=== PATIENT | female | born 2000 | race Two or more races ===

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

== ENCOUNTER 2020-05-02 23:52 | Inpatient (IN) | payer SELFPAY ==
[2020-05-03] MEDS ORDERED: RINGERS SOLUTION,LACTATED 1,000 ML IV ONE (01:00)
[2020-05-03] MEDS ORDERED: RINGERS SOLUTION,LACTATED 1,000 ML IV PRN ×2 (01:00→22:46)
[2020-05-03] MEDS ORDERED: PENICILLIN G POTASSIUM 5,000,000 UNIT in DEXTROSE 5%-WATER 100 ML IV ONE (01:09)
[2020-05-03] MEDS ORDERED: OXYTOCIN 10 UNIT/ML VIAL ONE ×3 (01:15→23:15)
[2020-05-03] MEDS ORDERED: LIDOCAINE 1% INJ-PF (10 MG/ML) 30 ML SDV ONE (01:15)
[2020-05-03] MEDS ORDERED: MISOPROSTOL 0.2 MG TABLET ONE (01:15)
[2020-05-03] MEDS ORDERED: PENICILLIN G-K 5 MILLION UNIT VIAL ONE ×2 (01:16→05:30)
[2020-05-03] MEDS ORDERED: OXYTOCIN/0.9 % SODIUM CHLORIDE 30 UNIT/500 ML RTUINJ ONE (01:16)
[2020-05-03 01:32] LABS: HEMATOCRIT 35.4 % (36.0-47.0); MEAN CORPUSCULAR HEMOGLOBIN 29.9 pg (27.0-33.4); MEAN CORPUSCULAR HGB CONC 33.9 g/dL (32.0-36.0); MEAN CORPUSCULAR VOLUME 88 fl (80-97); PLATELET COUNT 193 10^3/uL (150-450); RED BLOOD COUNT 4.01 10^6/uL (3.72-5.28); RED CELL DISTRIBUTION WIDTH 15.4 % (11.5-14.0); WHITE BLOOD COUNT 9.3 10^3/uL (4.0-10.5)
[2020-05-03 01:42] LABS: APPEARANCE,URINE SLIGHTLY-CLOUDY; BILIRUBIN,URINE NEGATIVE (NEGATIVE); COLOR,URINE YELLOW; GLUCOSE, URINE NEGATIVE (NEGATIVE); KETONES,URINE NEGATIVE (NEGATIVE); LEUKOCYTE ESTERASE,URINE NEGATIVE (NEGATIVE); NITRITE,URINE NEGATIVE (NEGATIVE); PROTEIN,URINE 100 mg/dL (NEGATIVE); URINE SPECIFIC GRAVITY 1.019; UROBILINOGEN,URINE NEGATIVE mg/dL (<2.0)
[2020-05-03 01:50] LABS: ALBUMIN 3.5 g/dL (3.5-5.0); ALKALINE PHOSPHATASE 251 U/L (38-126); ANION GAP 6 (5-19); ASPARTATE AMINO TRANSFERASE 22 U/L (14-36); BILIRUBIN,TOTAL 0.2 mg/dL (0.2-1.3); BLOOD UREA NITROGEN 15 mg/dL (7-20); CALCIUM 9.3 mg/dL (8.4-10.2); CARBON DIOXIDE 20 mmol/L (22-30); CHLORIDE 109 mmol/L (98-107); GLUCOSE 93 mg/dL (75-110); POTASSIUM 4.3 mmol/L (3.6-5.0); TOTAL PROTEIN 6.9 g/dL (6.3-8.2); URIC ACID 4.4 mg/dL (2.5-6.2)
[2020-05-03 01:59] LABS: URINE AMPHETAMINES SCREEN NEGATIVE; URINE BARBITURATES SCREEN NEGATIVE; URINE BENZODIAZEPINES SCREEN NEGATIVE; URINE COCAINE SCREEN NEGATIVE; URINE MARIJUANA (THC) SCREEN NEGATIVE; URINE METHADONE SCREEN NEGATIVE; URINE PHENCYCLIDINE SCREEN NEGATIVE
[2020-05-03] MEDS ORDERED: EPHEDRINE SULFATE INJ 50 MG/1 ML AMPULE ONE (02:30)
[2020-05-03] MEDS ORDERED: FENTANYL/BUPIVACAINE/NS/PF 300 MCG/150 ML RTUINJ EPI ONE ×2 (02:30→19:16)
[2020-05-03] MEDS ORDERED: ROPIVACAINE HCL 0.2% INJ/PF (2 MG/ML) 20 ML SDV ONE (02:30)
[2020-05-03] MEDS ORDERED: PENICILLIN G POTASSIUM 2,500,000 UNIT in DEXTROSE 5%-WATER 50 ML IV SCH (05:09)
[2020-05-03 05:27] LABS: CHLAM PCR NOT DETECTED (NOT DETECT)
--- NOTE | 2020-05-03 07:12 | Admission Physical ---
Datetime Report Generated by CPN: 05/03/2020 07:11 CURRENT ADMISSION Hx Assessment: The History has been Reviewed and is Current Chief Complaint: Uterine Contractions Chief Complaint Other: G1 at 40.4 wks EGA in active labor . Contractions every 3 minutes. Admit Impression : Active Labor Admit Plan: Admit to Unit; Initiate Labor Protocol ALLERGIES Medication Allergies: No Medication Allergies: No Known Allergies (05/03/2020), pork Latex: No Latex Allergies Food Allergies: pork OBSTETRICAL HISTORY EDC: 04/29/2020 00:00 : 1 Para: 0 Term: 0 : 0 SAB: 0 IAB: 0 Ectopic: 0 Livin Cesareans: 0 VBACs: 0 Multiple Births: 0 Gestational Diabetes: No Rh Sensitization: No Incompetent Cervix: No CHAS: No Infertility: No ART Treatment: No Uterine Anomaly: No IUGR: No Hx Previous C/S: No Macrosomia: No Hx Loss/Stillborn: No PIH: No Hx : No Placenta Previa/Abruption: No Depression/PP Depression: No PTL/PROM: No Post Hemorrhage: No Current Procedures: Ultrasound Obstetrical History Comments: g1-current SEE RECORDS Alcohol: No Marijuana : No Cocaine: No Other Illicit Drugs: No Cigarettes: Never Smoker. 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 Heart Disease: No Hosp/Surgery: No Autoimmune Disorder: No Anesthetic Complications: No Kidney Disease: No Abnormal Pap Smear: No Neuro/Epilepsy: No Psychiatric Disorders: No Other Medical Diseases: No Hepatitis/Liver Disease: No Significant Family History: No Varicosities/Phlebitis: No Trauma/Violence : No Thyroid Dysfunction: No INFECTIOUS HISTORY Gonorrhea: No Genital Herpes: No Chlamydia: No Tuberculosis: No Syphilis: No Hepatitis: No HIV/AIDS Exposure: No Rash or Viral Illness: No HPV: No PHYSICAL EXAM General: Normal HEENT: Normal Neurologic: Normal Thyroid: Normal Heart: Normal Lungs: Normal Breast: Normal Back: Normal Abdomen: Normal Genitourinary Exam: Normal Extremities: Normal DTRs: Normal Pelvic Type: Adequate Vital Signs: Reviewed; Within Normal Limits FETUS A EGA: 40.4 Monitoring: External US FHR- Baseline: 130 Variability: Moderate 6-25bpm Accelerations: 15X15 Decelerations: Late FHR Category: Category II Presentation: Vertex Admit Comment: G1 at 40.4 wks EGA in active labor at term -Admit to LDR -NPO and IVFs: LR at 125 cc/hr after 1 liter bolus -GBS unknown: will start PCN and get records from health department as soon as open -O+ blood type, antibody negative/ G/C negative -CEFM and toco. Mod jared, occassional shallow late: Cat 2 -Mildly elevated b/p, no PIH symptoms. PIH labs pending -PLan for PLANS FOR LABOR AND DELIVERY Labor and Delivery: None Pain Management: Medications Feeding Preference: Both Benefit of Breast Feed Discussed: Yes Circumcision: Yes INFORMED CONSENT Informed Consent Obtained: Vaginal Delivery; Section Delivery; Vacuum/Forceps Assist; Risks, Benefits and Alternatives Discussed Signature: with User ID: Ernesto : with User ID: [email or web address]
[2020-05-03] MEDS ORDERED: OXYTOCIN/0.9 % SODIUM CHLORIDE 30 UNIT/500 ML RTUINJ IV PRN ×2 (10:55→22:46)
[2020-05-03] MEDS ORDERED: ROPIVACAINE HCL 0.5% INJ/PF (5 MG/1 ML) 30 ML SDV ONE ×2 (11:40→16:42)
[2020-05-03] MEDS ORDERED: ONDANSETRON HCL INJ/PF 4 MG/2 ML SDV ONE (17:00)
[2020-05-03] MEDS ORDERED: ONDANSETRON HCL INJ/PF 4 MG/2 ML SDV IV ONE (17:02)
[2020-05-03] MEDS ORDERED: CEFAZOLIN 2 GM/D5W RTU 2 GM/50 ML RTUPB IV ONE (21:37)
[2020-05-03] MEDS ORDERED: CITRIC ACID/SODIUM CITRATE ORAL SOLN 15 ML UDCUP ONE (21:37)
[2020-05-03] MEDS ORDERED: MAGNESIUM SULFATE 0 GM/0 ML RTUINJ IV ONE (22:05)
[2020-05-03] MEDS ORDERED: MAGNESIUM SULFATE 4 GM/100 ML RTUPB IV ONE (22:05)
[2020-05-03] MEDS ORDERED: MIDAZOLAM 2 MG/2 ML INJ ONE (22:22)
[2020-05-03] MEDS ORDERED: FENTANYL CITRATE INJ/PF 100 MCG/2 ML AMPUL ONE (22:23)
[2020-05-03] MEDS ORDERED: ACETAMINOPHEN 325 MG TABLET PO PRN (22:46)
[2020-05-03] MEDS ORDERED: GLUCAGON,HUMAN RECOMB 1 MG INJ SUBCUT PRN (22:46)
[2020-05-03] MEDS ORDERED: DEXTROSE 40% GEL 15 GM TUBE PO PRN ×2 (22:46)
[2020-05-03] MEDS ORDERED: MORPHINE SULFATE 10 MG/ML INJ IM PRN (22:46)
[2020-05-03] MEDS ORDERED: PROMETHAZINE HCL INJ 25 MG/1 ML VIAL IV PRN (22:46)
[2020-05-03] MEDS ORDERED: SIMETHICONE 80 MG TAB.CHEW PO PRN (22:46)
[2020-05-03] MEDS ORDERED: DEXTROSE 50%-WATER 25 GM/50 ML DISP.SYRIN IV PRN ×2 (22:46)
[2020-05-03] MEDS ORDERED: ACETAMINOPHEN 1,000 MG/100 ML RTUPB IV PRN (22:46)
[2020-05-03] MEDS ORDERED: DIPH/PERTUSS(ACELL)/TETANUS VAC/PF 0.5 ML SYR (>=10YO) IM PRN (22:46)
[2020-05-03] MEDS ORDERED: MEASLES,MUMPS&RUBELLA VACC/PF 0.5 ML VIAL SUBCUT PRN (22:46)
--- NOTE | 2020-05-03 22:50 | Operative Report ---
Operative Report DATE OF SURGERY: 05/03/20 PREOPERATIVE DIAGNOSIS: IUP at term spontaneous rupture membranes failu re to descend and eclampsia POSTOPERATIVE DIAGNOSIS: Same OPERATION: Primary low transverse liberal viable male SURGEON: RAFA FREEMAN ANESTHESIA: GA ESTIMATED BLOOD LOSS: Approximately 1200 cc PROCEDURE: The patient was taken to the operating room where spinal anesthesia was obtained and found to be adequate. She was then prepped and draped in the normal sterile fashion and placed in the dorsal supine position with a leftward tilt. A Pfannenstiel skin incision was then made and carried through to the underlying layers of the fascia with the scalpel. The fascia was incised in the midline and the incision extended laterally with the Liang scissors. The superior aspect of the fascial incision was then grasped with [place] clamps elevated and the underlying rectus muscles dissected off bluntly. Attention was then turned to the inferior aspect of the fascial incision which in a similar fashion was grasped, tented up with Tarik clamps, and the rectus muscles dissected off bluntly. The rectus muscles were then in the midline and the peritoneum at the amount identified and entered bluntly. The peritoneal incision was then extended superiorly and inferiorly with good visualization of the bladder. [The bladder blade was inserted and the vesicouterine peritoneum identified grasped with Turkmen pickups and entered sharply with the Metzenbaum scissors. His incision was then extended laterally with the Metzenbaum scissors and a bladder flap created digitally. The bladder blade was then reinserted and the lower uterine segment incised in a transverse fashion with the scalpel. The uterine incision was then extended bluntly. The bladder blade was removed and the 's head was delivered from cephalic presentation atraumatically. The nose and mouth were suctioned and the cord doubly clamped and cut. And the infant was handed off to waiting pediatricians. The placenta was then delivered manully and the uterus exteriorized and cleared of all clots and debris. The uterine incision was then repaired with 1-0 Vicryl in a running locked fashion. A second layer of the same suture was used to obtain hemostasis via imbrication of the initial layer. The uterus was returned to the patient's abdomen. The gutters were cleared of all clots and debris. All operative sites were noted to be hemostatic. The fascia was reapproximated with 0 Vicryl in a running fashion from each lateral edge to the midline. The patient tolerated the procedure well. Sponge lap needle and instrument counts are correct -2. 2 g of Ancef were given prior to skin incision. The patient was taken to the recovery area awake and in stable condition.
[2020-05-03] MEDS ORDERED: MAGNESIUM SULFATE 20 GM/500 ML RTUINJ IV ONE (22:54)
--- NOTE | 2020-05-03 22:56 | PDOC PROGRESS REPORT ---
Subjective Date:: 05/03/20 Subjective:: postictal Reason For Visit: Physical Exam - Physical Exam Vital Signs: Intake & Output 05/02/20 05/03/20 05/04/20 06:59 06:59 06:59 Weight 76 kg Result Laboratory Results: 05/03/20 01:18 05/03/20 01:18 05/03/20 05/03/20 05/03/20 01:18 01:18 01:18 WBC 9.3 RBC 4.01 Hgb 12.0 Hct 35.4 L MCV 88 MCH 29.9 MCHC 33.9 RDW 15.4 H Plt Count 193 Sodium 135.0 L Potassium 4.3 Chloride 109 H Carbon Dioxide 20 L Anion Gap 6 BUN 15 Creatinine 0.66 Est GFR ( Amer) > 60 Glucose 93 Uric Acid 4.4 Calcium 9.3 Total Bilirubin 0.2 AST 22 Alkaline Phosphatase 251 H Total Protein 6.9 Albumin 3.5 Urine Color Urine Appearance Urine pH Ur Specific [place] Urine Protein Urine Glucose (UA) Urine Ketones Urine Blood Urine Nitrite Ur Leukocyte Esterase Blood Type O POSITIVE Antibody Screen NEGATIVE 05/03/20 01:24 WBC RBC Hgb Hct MCV MCH MCHC RDW Plt Count Sodium Potassium Chloride Carbon Dioxide Anion Gap BUN Creatinine Est GFR ( Amer) Glucose Uric Acid Calcium Total Bilirubin AST Alkaline Phosphatase Total Protein Albumin Urine Color YELLOW Urine Appearance SLIGHTLY-CLOUDY Urine pH 7.0 Ur Specific [place] 1.019 Urine Protein 100 H Urine Glucose (UA) NEGATIVE Urine Ketones NEGATIVE Urine Blood NEGATIVE Urine Nitrite NEGATIVE Ur Leukocyte Esterase NEGATIVE Blood Type Antibody Screen Assessment & Plan - Time Time Spent with patient: Less than 15 minutes Medications reviewed and adjusted accordingly: Yes - Plan Summary Plan Summary: Called to see pt for evaluation of failure to decend. Arrived after py had a seizure. No prior indication of pre-eclampsia noted. Labs and BP in normal range. planned to proceed with .
[2020-05-03] MEDS ORDERED: PROPOFOL INJ 200 MG/20 ML VIAL IV ONE (23:07)
[2020-05-03 23:28] LABS: HEMATOCRIT 35.7 % (36.0-47.0); HEMOGLOBIN 11.8 g/dL (12.0-15.5); MEAN CORPUSCULAR HEMOGLOBIN 29.6 pg (27.0-33.4); MEAN CORPUSCULAR VOLUME 90 fl (80-97); PLATELET COUNT 221 10^3/uL (150-450); RED BLOOD COUNT 3.97 10^6/uL (3.72-5.28); RED CELL DISTRIBUTION WIDTH 15.3 % (11.5-14.0)
[2020-05-03 23:30] LABS: WHITE BLOOD COUNT 21.4 10^3/uL (4.0-10.5)
[2020-05-03 23:33] LABS: ALBUMIN 3.1 g/dL (3.5-5.0); ALKALINE PHOSPHATASE 251 U/L (38-126); ANION GAP 12 (5-19); ASPARTATE AMINO TRANSFERASE 38 U/L (14-36); BILIRUBIN,DIRECT 0.2 mg/dL (0.0-0.4); BILIRUBIN,TOTAL 0.5 mg/dL (0.2-1.3); BLOOD UREA NITROGEN 17 mg/dL (7-20); CALCIUM 8.3 mg/dL (8.4-10.2); CARBON DIOXIDE 14 mmol/L (22-30); CHLORIDE 104 mmol/L (98-107); GLUCOSE 94 mg/dL (75-110); POTASSIUM 5.2 mmol/L (3.6-5.0); TOTAL PROTEIN 6.4 g/dL (6.3-8.2); URIC ACID 5.3 mg/dL (2.5-6.2)
[2020-05-03 23:38] LABS: ABSOLUTE LYMPHOCYTES# (MANUAL) 1.5 10^3/uL (0.5-4.7); BASOPHILS % (MANUAL) 0 % (0-2); EOSINOPHILS % (MANUAL) 0 % (0-6); LYMPHOCYTES % (MANUAL) 7 % (13-45); MONOCYTES % (MANUAL) 0 % (3-13); SEGMENTED NEUTROPHILS % (MAN) 93 % (42-78); TOTAL CELLS COUNTED 100
[2020-05-03 23:39] LABS: ANISOCYTOSIS SLIGHT; PLATELET COMMENT ADEQUATE; TOXIC GRANULATION SLIGHT; TOXIC VACUOLATION PRESENT
[2020-05-04] MEDS ORDERED: ACETAMINOPHEN 1,000 MG/100 ML RTUPB IV ONE (00:05)
--- NOTE | 2020-05-04 02:36 | Delivery Summary ---
Del Sum A-C Datetime Report Generated by CPN: 05/04/2020 02:35 DELIVERY PERSONNEL DELIVERY PERSONNEL: [id number] Delivery Doctor:: Vamsi Chaudhry MD LINER ASSEMBLER:: Ashu Ospina, LINER ASSEMBLER Community Engagement Leader:: Kirk Gregory, RN Steward/Stewardess Chief Cargo Vessel/DRAWER WAXER: Jessi Green, ST Steward/Stewardess Chief Cargo Vessel/DRAWER WAXER: Paz Clark, ST MATERNAL INFORMATION Delivery Anesthesia: Epidural; General Medications After Delivery: Pitocin 30 Units in 500ml NS/D5W Delivery QBL: 710 Maternal Complications: Premature Rupture of Membranes LABOR SUMMARY EDC: 04/29/2020 00:00 No. Babies in Womb: 1 Attempted: No Labor Anesthesia: Epidural LABOR INFORMATION Reason for Induction: Not Applicable Onset of Labor: 05/03/2020 13:55 Complete Dilatation: 05/03/2020 18:27 Oxytocin: Augmentation Group B Beta Strep: negative Antibiotics # of Doses: n/a Steroids Given: None Reason Steroids Not Administered: Not Applicable MEMBRANES Membranes Rupture Method: Artificial Rupture of Membranes: 05/02/2020 23:00 Length of Rupture (hr): 23.28 Amniotic Fluid Color: Clear Amniotic Fluid Amount: Small Amniotic Fluid Odor: Normal STAGES OF LABOR Stage 1 hr: 4 Stage 1 min: 32 Stage 2 hr: 3 Stage 2 min: 50 Stage 3 hr: 24 Stage 3 min: 2 Total Time in Labor hr: 32 Total Time in Labor min: 24 VAGINAL DELIVERY Episiotomy: None Laceration #1: None Laceration Repair: Not Applicable Sponge Count Correct: N/A Sharps Count Correct: N/A CSECTION DELIVERY Primary Indication: Arrest of Descent CSection Urgency: Emergency CSection Incidence: Primary Labor: Labor Elective: N/A CSection Incision: Lower Uterine Transverse BABY A INFORMATION Infant Delivery Date/Time: 05/03/2020 22:17 Method of Delivery: Nurse Controlled Delivery: No Born in Route : No : N/A Forceps: N/A (Annotations: Data stored by [facility] on behalf of user) Vacuum Extraction: N/A Shoulder Dystocia : No PRESENTATION/POSITION BABY A Presentation: Cephalic Cephalic Presentation: Vertex (Annotations: Data stored by [facility] on behalf of user) Breech Presentation: N/A PLACENTA INFORMATION BABY A Placenta Delivery Time : 05/04/2020 22:19 Placenta Method of Delivery: Manual Removal Placenta Status: Delivered SCORES BABY A Heart Rate 1 min: >100 bpm Resp Effort 1 min: Good Cry Reflex Irritability 1 min: Cough or Sneeze or Pulls Away Muscle Tone 1 min: Active Motion Color 1 min: Blue/Pale Resuscitation Effort 1 min: Tactile Stimulation; Oxygen; PPV/NCPAP SCORE 1 MIN: 8 Heart Rate 5 min: >100 bpm Resp Effort 5 min: Good Cry Reflex Irritability 5 min: Cough or Sneeze or Pulls Away Muscle Tone 5 min: Active Motion Color 5 min: Body [place], Extremities Blue SCORE 5 MIN: 9 INFANT INFORMATION BABY A Gestational Age at Delivery: 40.4 Gestational Status: Full Term- 39- 40.6 Weeks Infant Outcome : Liveborn (Annotations: Data stored by CPN on behalf of user) Infant Condition : Stable (Annotations: Data stored by CPN on behalf of user) Infant Sex: Male (Annotations: Data stored by [facility] on behalf of user) IDENTIFICATION BABY A Infant Verification Date/Time: 05/03/2020 22:55 ID Band Number: [id number] Mother's Name Verified: Yes RN Verifying Infant: L Chaudhry, RN WEIGHT/LENGTH BABY A Infant Birthweight (gm): 3425 Weight (lb): 7 Weight (oz): 9 Length (in): 20.50 (Annotations: Data stored by [facility] on behalf of user) Infant Length (cm): 52.07 CORD INFORMATION BABY A No. Cord Vessels: 3 Nuchal Cord : N/A Cord Blood Taken: Yes-For Eval (Mom's Blood Type - or O+) Infant Suction: None ASSESSMENT BABY A Skin to Skin: Yes Skin to Skin Time (min): 10 BABY B INFORMATION : N/A SIGNATURES Signature: with User ID: [email or web address]
--- NOTE | 2020-05-04 02:36 | Birth Certificate Data ---
Cert Data Datetime Report Generated by CPN: 05/04/2020 02:35 CERTIFICATE DATA Delivery Provider: Vamsi Chaudhry MD (05/03/2020 21:49:Amalia Rico RN) 47a. Care: Yes (05/03/2020 00:02:Eugenie Steele RN) 47b. Date of First Visit: 11/03/2019 00:00 (05/03/2020 00:02:Amalia Rico RN) 48a. Number of Prev Live Births: 0 (05/03/2020 00:02:Eugenie Steele RN) 48b. Now Livin (05/03/2020 00:02:Eugenie Steele RN) 48c. Live Births Now : 0 (05/03/2020 00:02:QS system process) 48e. Losses: 0 (05/03/2020 00:02:Eugenie Steele RN) RISK FACTORS IN THIS 49a. Diabetes: No (05/03/2020 00:02:Eugenie Steele RN) 49b. Hypertension: No (05/03/2020 00:02:Eugenie Steele RN) 49c. Previous Births: 0 (05/03/2020 00:02:Eugenie Steele RN) 49d. Stillborns: No (05/03/2020 00:02:Eugenie Steele RN) 49d. IUGR: No (05/03/2020 00:02:Eugenie Steele RN) 49e. Infertility Treatment: No (05/03/2020 00:02:Eugenie Steele RN) 49f. Previous Cesareans: 0 (05/03/2020 00:02:Eugenie Steele RN) Mother's Height 50b. Height Inches: 59 (05/03/2020 20:09:QS system process) Mother's Weight 51a. Pre- Weight (lbs): 126 (05/03/2020 00:02:Amalia Rico RN) 51b. Weight at Delivery (lbs): 167 (05/03/2020 00:01:QS system process) 52. Dt Last Normal Menses Began: 06/27/2019 00:00 (05/03/2020 00:02:Amalia Rico RN) Infections Present/Treated 53a. Gonorrhea: No (05/03/2020 00:02:Eugenie Steele RN) Results this Hospital Visit : Negative (05/03/2020 00:02:Eugenie Steele RN) 53b. Syphilis: No (05/03/2020 00:02:Eugenie Steele RN) Results this Hospital Visit: NONREACTIVE (05/03/2020 01:18:QS system process) 53c. Chlamydia: No (05/03/2020 00:02:Eugenie Steele RN) Results this Hospital Visit: Negative (05/03/2020 00:02:Eugenie Steele RN) 53d. Hepatitis B: No (05/03/2020 00:02:Eugenie Steele RN) Results this Hospital Visit: Negative (05/03/2020 00:02:Eugenie Steele RN) 53e. Hepatitis C: Negative (05/03/2020 00:02:Amalia Rico RN) 53h. Mother Tested for HBsAG: Yes (05/03/2020 00:02:Amalia Rico RN) 53i. Date Tested: 12/01/2019 00:00 (05/03/2020 00:02:Amalia Rico RN) 53j. Test Result: Negative (05/03/2020 00:02:Eugenie Steele RN) Obstetric Procedures 54a, b, c. Obstetric Procedures: Ultrasound (05/03/2020 00:02:Eugenie Steele RN) Cigarette Smoking Cigarette Smoking: Never Smoker. [id number] (05/03/2020 00:02:Eugenie Steele RN) Onset of Labor 56a. PROM >12 Hrs: 23.28 (05/03/2020 00:16:QS system process) 56b. Precipitous Labor <3 Hrs: 32 (05/03/2020 00:02:QS system process) 56c. Prolonged Labor > 20 Hrs: 32 (05/03/2020 00:02:QS system process) 57a. Induction of Labor: Augmentation (05/03/2020 00:02:Kirk Gregory RN) 57c. Non-Vertex Presentation A: Vertex (Annotations: Data stored by CPN on behalf of user) (05/03/2020 00:02:Amalia Rico RN) 57d. Steroids - Lung Mat: None (05/03/2020 00:02:Eugenie Steele RN) 57d. Steroids - Lung Mat: Not Applicable (05/03/2020 00:02:Eugenie Steele RN) 57f. Mat [place] or Temp >100.4: 99.0 (05/03/2020 00:02:Amalia Rico RN) 57g. Moderate/Heavy Meconium: Clear (05/03/2020 13:55:Rachel Hartman RN) 57h. Intolerance of Labor: Arrest of Descent (05/03/2020 00:02:Vamsi Chaudhry MD ([facility])) 57i. Epidural/Spinal Anesthesia: Epidural (05/03/2020 00:02:Eugenie Steele RN) Method of Delivery 58a. Forceps - Unsuccessful A: N/A (Annotations: Data stored by [facility] on behalf of user) (05/03/2020 00:02:Amalia Rico RN) 58b. Vacuum - Unsuccessful A: N/A (05/03/2020 00:02:Amalia Rico RN) 58c. Presentation at 58c. Presentation at - A : Vertex (Annotations: Data stored by [facility] on behalf of user) (05/03/2020 00:02:Amalia Rico RN) 58c. Presentation at - A : N/A (05/03/2020 00:02:Kirk Gregory RN) 58c. Presentation at - A : Cephalic (05/03/2020 13:55:Rachel Hartman RN) Final Route and Method of Del 58d. Baby A Route/Delivery: (05/03/2020 00:02:Amalia Rico RN) 58e. Trial of Labor Attempted: No (05/03/2020 00:02:Eugenie Steele RN) 58e. Trial of Labor Attempted A: N/A (05/03/2020 00:02:Eugenie Steele RN) 58e. Trial of Labor Attempted B: N/A (05/03/2020 00:02:Eugenie Steele RN) Maternal Morbidity 59b. 3rd or 4th Degree Lacs: None (05/03/2020 00:02:Kirk Gregory RN) 59b. 3rd or 4th Degree Lacs: N/A (05/03/2020 00:02:Kirk Gregory RN) Birthweight Baby A: 3425 (05/03/2020 00:02:Yelitza Glass RN) 60a. Pounds : 7 (05/03/2020 00:02:QS system process) 60b. Ounces: 9 (05/03/2020 00:02:QS system process) 61. GA at Delivery Baby A: 40.4 (05/03/2020 00:02:Amalia Rico RN) : Full Term- 39- 40.6 Weeks (05/03/2020 00:02:QS system process) 62a. 5 Minute Baby A: 9 (05/03/2020 00:02:QS system process)
[2020-05-04] MEDS ORDERED: KETOROLAC TROMETHAMINE INJ/PF 30 MG/1 ML SDV ONE ×3 (05:44→21:50)
[2020-05-04] MEDS: KETOROLAC TROMETHAMINE INJ/PF 30 MG/1 ML SDV IV SCH ×3 (05:57→21:54)
[2020-05-04 08:11] LABS: HEMATOCRIT 28.4 % (36.0-47.0); MEAN CORPUSCULAR HEMOGLOBIN 30.1 pg (27.0-33.4); MEAN CORPUSCULAR VOLUME 89 fl (80-97); PLATELET COUNT 168 10^3/uL (150-450); RED CELL DISTRIBUTION WIDTH 15.4 % (11.5-14.0); WHITE BLOOD COUNT 17.4 10^3/uL (4.0-10.5)
[2020-05-04 08:13] LABS: HEMOGLOBIN 9.6 g/dL (12.0-15.5)
[2020-05-04] MEDS ORDERED: MAGNESIUM SULFATE 20 GM/500 ML RTUINJ IV ONE (09:03)
[2020-05-04] MEDS ORDERED: MAGNESIUM SULFATE 20 GM/500 ML RTUINJ IV PRN (09:15)
[2020-05-04] MEDS ORDERED: DOCUSATE SODIUM 100 MG CAPSULE ONE ×2 (10:54→20:52)
[2020-05-04] MEDS ORDERED: PRENATAL VITAMIN W DHA CAPSULE PO ONE (10:54)
[2020-05-04] MEDS: DOCUSATE SODIUM 100 MG CAPSULE PO SCH ×2 (10:57→20:53)
[2020-05-04] MEDS: PRENATAL VITAMIN W DHA CAPSULE PO SCH (10:57)
[2020-05-04] MEDS ORDERED: OXYCODONE-ACETAMINOPHEN 5-325 MG TABLET ONE ×2 (11:10→19:32)
[2020-05-04] MEDS: OXYCODONE-ACETAMINOPHEN 5-325 MG TABLET PO PRN ×2 (11:11→19:34)
--- NOTE | 2020-05-04 18:45 | L&D Progress Notes ---
PROGRESS NOTES Datetime Report Generated by CPN: 05/04/2020 18:45 PROGRESS NOTE Impression: Eclampsia - Severe Plan: Continue Present Management Informed Consent Obtained: Section Delivery Vital Signs : Reviewed Comment: She is doing well tonight with good urine output and normal blood pressures. We will stop the magnesium at 10 and then transfer to the floor. LAST VAGINAL EXAM-NURSING Nursing Exam Dilitation: 10.0 Nursing Exam Effacement: 100 Nursing Exam Station: 0 Nursing Exam Contractions: UTD at this time. [place] readjusted FETUS A : 40.4 Presentation: Vertex SIGNATURE SIGNATURE: [id number];[id number];[id number];[id number] Signature: with User ID: [email or web address]
[2020-05-05] MEDS: OXYCODONE-ACETAMINOPHEN 5-325 MG TABLET PO PRN ×2 (02:36→09:42)
[2020-05-05] MEDS: IBUPROFEN 800 MG TABLET PO SCH ×5 (03:49→23:54)
[2020-05-05] MEDS: DOCUSATE SODIUM 100 MG CAPSULE PO SCH ×2 (09:40→17:24)
[2020-05-05] MEDS: PRENATAL VITAMIN W DHA CAPSULE PO SCH (09:40)
--- NOTE | 2020-05-05 10:17 | PDOC PROGRESS REPORT ---
Subjective-OB Progress Note for:: 05/05/20 - POD #2, doing well, denies headache, O+, Rubella immune, s/p due to eclamptic seizure while pushing. Physical Exam (OB) Vital Signs: Temp Pulse Resp BP Pulse Ox 98.0 F 80 16 108/63 95 05/05/20 07:22 05/05/20 07:22 05/05/20 07:22 05/05/20 07:22 05/05/20 07:22 Intake & Output 05/04/20 05/05/20 05/06/20 06:59 06:59 06:59 Output Total 300 Balance -300 - General General Appearance: Appears well, Alert In distress: None - PIH/Pre-Eclampsia DTR's: 2 + Clonus: Negative Headache: Absent Epigastric Pain: No Visual Changes: No - Dressing Removed: Yes Incision: Dressing, Well Approximated Note: dressing removed. RN to apply steri-strips and honeycomb dressing to approximate skin - Maternal Morbidity 59. Maternal Morbidity (serious complications experinced by the mother associated with labor and delivery: None of the above - Abdomen Description: Soft, Round Hernia Present: No Fundal Description: Firm, Midline Fundal Height: u/u - u/2 - Respiratory Respiratory Status: No respiratory distress - Abdominal Distension: No distension Tenderness: Nontender - Genitourinary Genitourinary Note: voiding - Extremities Upper extremity: Normal inspection Lower extremities: Normal inspection - Neurological Cognition: Normal Orientation: AAOx4 - Psychological Associated symptoms: Normal affect - Skin Skin Temperature: Warm Skin Moisture: Dry Objective-Diagnostic Laboratory: 05/04/20 07:19 05/03/20 23:02 Assessment and Plan(PN) - Assessment and Plan (1) Active labor at term Is this a current diagnosis for this admission?: Yes (2) Eclampsia affecting first Is this a current diagnosis for this admission?: Yes (3) S/P primary low transverse Is this a current diagnosis for this admission?: Yes (4) SROM (spontaneous rupture of membranes) Is this a current diagnosis for this admission?: Yes Plan:: Routine PP orders, ambulation encouraged. Headache precautions reviewed - Time Spent with Patient Time with patient: Less than 15 minutes Medications reviewed and adjusted accordingly: Yes - Disposition Anticipated Discharge Disposition: Home, Self Care Anticipated Discharge Timeframe: within 24 hours
[2020-05-06] MEDS: IBUPROFEN 800 MG TABLET PO SCH ×2 (05:48→13:46)
--- NOTE | 2020-05-06 10:26 | PDOC DISCHARGE SUMMARY ---
Impression - Admit/DC Date/PCP Admission Date/Primary Care Provider: 05/03/20 00:51 RADHIKA VELEZ CNM Discharge Date: 05/06/20 - POD #3, pt doing well, denies headache, no complaints, O+, Rubella immune, bottlefeeding - Discharge Diagnosis (1) Active labor at term Is this a current diagnosis for this admission?: Yes (2) Eclampsia affecting first Is this a current diagnosis for this admission?: Yes (3) S/P primary low transverse Is this a current diagnosis for this admission?: Yes (4) SROM (spontaneous rupture of membranes) Is this a current diagnosis for this admission?: Yes - Additional Information Resuscitation Status: Full Code Discharge Diet: As Tolerated Discharge Activity: Activity As Tolerated, No Driving, No Lifting Over 10 Pounds, Pelvic Rest Referrals: RADHIKA VELEZ CNM [Primary Care Provider] - Prescriptions: Ibuprofen [Motrin 800 mg Tablet] 800 mg PO Q6 #60 tablet Oxycodone HCl/Acetaminophen [Percocet 5-325 mg Tablet] 2 tab PO Q4HP PRN #30 tablet PRN Reason: Pain Scale Of 4 Home Medications: 95/Iron Fum/Folic/Dha [ + Dha Combo Pack] 1 tab PO DAILY 1 07/04/19 Ibuprofen [Motrin 800 mg Tablet] 800 mg PO Q6 #60 tablet 05/06/20 Oxycodone HCl/Acetaminophen [Percocet 5-325 mg Tablet] 2 tab PO Q4HP PRN #30 tablet 05/06/20 HPI Reason(s) for Admission: Induction of Labor Procedures: NST, Ultrasound Intrapartum Procedure(s): : Low Cervical, Transverse Complication(s): Other - Eclamptic seizure Hospital Course 59. Maternal Morbidity (serious complications experinced by the mother associated with labor and delivery: None of the above Results Laboratory Results: WBC 17.4 10^3/uL (4.0-10.5) H 05/04/20 07:19 RBC 3.20 10^6/uL (3.72-5.28) L 05/04/20 07:19 Hgb 9.6 g/dL (12.0-15.5) L D 05/04/20 07:19 Hct 28.4 % (36.0-47.0) L 05/04/20 07:19 MCV 89 fl (80-97) 05/04/20 07:19 MCH 30.1 pg (27.0-33.4) 05/04/20 07:19 MCHC 34.0 g/dL (32.0-36.0) 05/04/20 07:19 RDW 15.4 % (11.5-14.0) H 05/04/20 07:19 Plt Count 168 10^3/uL (150-450) 05/04/20 07:19 Lymph % (Auto) Not Reportable 05/03/20 23:02 [place] % (Auto) Not Reportable 05/03/20 23:02 Eos % (Auto) Not Reportable 05/03/20 23:02 Baso % (Auto) Not Reportable 05/03/20 23:02 Absolute Neuts (auto) Not Reportable 05/03/20 23:02 Absolute Lymphs (auto) Not Reportable 05/03/20 23:02 Absolute Monos (auto) Not Reportable 05/03/20 23:02 Absolute Eos (auto) Not Reportable 05/03/20 23:02 Absolute Basos (auto) Not Reportable 05/03/20 23:02 Total Counted 100 05/03/20 23:02 Seg Neutrophils % Not Reportable 05/03/20 23:02 Seg Neuts % (Manual) 93 % (42-78) H 05/03/20 23:02 Lymphocytes % (Manual) 7 % (13-45) L 05/03/20 23:02 Monocytes % (Manual) 0 % (3-13) L 05/03/20 23:02 Eosinophils % (Manual) 0 % (0-6) 05/03/20 23:02 Basophils % (Manual) 0 % (0-2) 05/03/20 23:02 Abs Neuts (Manual) 19.9 10^3/uL (1.7-8.2) H 05/03/20 23:02 Abs Lymphs (Manual) 1.5 10^3/uL (0.5-4.7) 05/03/20 23:02 Abs Monocytes (Manual) 0.0 10^3/uL (0.1-1.4) L 05/03/20 23:02 Absolute Eos (Manual) 0.0 10^3/uL (0.0-0.6) 05/03/20 23:02 Abs Basophils (Manual) 0.0 10^3/uL (0.0-0.2) 05/03/20 23:02 Toxic Granulation SLIGHT 05/03/20 23:02 Toxic Vacuolation PRESENT 05/03/20 23:02 Platelet Comment ADEQUATE 05/03/20 23:02 Anisocytosis SLIGHT 05/03/20 23:02 Sodium 130.3 mmol/L (137-145) L 05/03/20 23:02 Potassium 5.2 mmol/L (3.6-5.0) H 05/03/20 23:02 Chloride 104 mmol/L (98-107) 05/03/20 23:02 Carbon Dioxide 14 mmol/L (22-30) L 05/03/20 23:02 Anion Gap 12 (5-19) 05/03/20 23:02 BUN 17 mg/dL (7-20) 05/03/20 23:02 Creatinine 0.82 mg/dL (0.52-1.25) 05/03/20 23:02 Est GFR ( Amer) > 60 (>60) 05/03/20 23:02 Est GFR (MDRD) Non-Af > 60 (>60) 05/03/20 23:02 Glucose 94 mg/dL (75-110) 05/03/20 23:02 Uric Acid 5.3 mg/dL (2.5-6.2) 05/03/20 23:02 Calcium 8.3 mg/dL (8.4-10.2) L 05/03/20 23:02 Total Bilirubin 0.5 mg/dL (0.2-1.3) 05/03/20 23:02 Direct Bilirubin 0.2 mg/dL (0.0-0.4) 05/03/20 23:02 Neonat Total Bilirubin Not Reportable 05/03/20 23:02 Neonat Direct Bilirubin Not Reportable 05/03/20 23:02 Neonat Indirect Bili Not Reportable 05/03/20 23:02 AST 38 U/L (14-36) H 05/03/20 23:02 ALT 20 U/L (<35) 05/03/20 23:02 Alkaline Phosphatase 251 U/L (38-126) H 05/03/20 23:02 Lactate Dehydrogenase 316 U/L (120-246) H 05/03/20 23:02 Total Protein 6.4 g/dL (6.3-8.2) 05/03/20 23:02 Albumin 3.1 g/dL (3.5-5.0) L 05/03/20 23:02 Urine Color YELLOW 05/03/20 01:24 Urine Appearance SLIGHTLY-CLOUDY 05/03/20 01:24 Urine pH 7.0 (5.0-9.0) 05/03/20 01:24 Ur Specific [place] 1.019 05/03/20 01:24 Urine Protein 100 mg/dL (NEGATIVE) H 05/03/20 01:24 Urine Glucose (UA) NEGATIVE mg/dL (NEGATIVE) 05/03/20 01:24 Urine Ketones NEGATIVE mg/dL (NEGATIVE) 05/03/20 01:24 Urine Blood NEGATIVE (NEGATIVE) 05/03/20 01:24 Urine Nitrite NEGATIVE (NEGATIVE) 05/03/20 01:24 Urine Bilirubin NEGATIVE (NEGATIVE) 05/03/20 01:24 Urine Urobilinogen NEGATIVE mg/dL (<2.0) 05/03/20 01:24 Ur Leukocyte Esterase NEGATIVE (NEGATIVE) 05/03/20 01:24 Urine Ascorbic Acid NEGATIVE (NEGATIVE) 05/03/20 01:24 Membranes Rupture POSITIVE (NEGATIVE) H 05/03/20 00:10 Urine Opiates Screen NEGATIVE 05/03/20 01:24 Urine Methadone Screen NEGATIVE 05/03/20 01:24 Ur Barbiturates Screen NEGATIVE 05/03/20 01:24 Ur Phencyclidine Scrn NEGATIVE 05/03/20 01:24 Ur Amphetamines Screen NEGATIVE 05/03/20 01:24 U Benzodiazepines Scrn NEGATIVE 05/03/20 01:24 Urine Cocaine Screen NEGATIVE 05/03/20 01:24 U Marijuana (THC) Screen NEGATIVE 05/03/20 01:24 RPR NONREACTIVE (NONREACTIVE) 05/03/20 01:18 Chlamydia DNA (PCR) NOT DETECTED (NOT DETECT) 05/03/20 01:24 COVID-19 Source Cancelled 05/04/20 00:20 COVID-19 (ZAHRAA) Cancelled 05/04/20 00:20 Influenza A (RT-PCR) NEGATIVE (NEGATIVE) 05/04/20 00:20 Influenza B (RT-PCR) NEGATIVE (NEGATIVE) 05/04/20 00:20 N.gonorrhoeae DNA (PCR) NOT DETECTED (NOT DETECT) 05/03/20 01:24 RSV (RT-PCR) NEGATIVE (NEGATIVE) 05/04/20 00:20 SARS-CoV-2 Rap RNA(RT-PCR) NEGATIVE (NEGATIVE) 05/04/20 00:20 Blood Type O POSITIVE 05/03/20 01:18 Antibody Screen NEGATIVE 05/03/20 01:18 Plan Health Concerns: BP precautions reviewed Plan of Treatment: D/c home, f/ up with [facility] in one week for incision check and BP check Time Spent: Less than 30 Minutes
[2020-05-06] MEDS: DOCUSATE SODIUM 100 MG CAPSULE PO SCH (10:32)
[2020-05-06] MEDS: PRENATAL VITAMIN W DHA CAPSULE PO SCH (10:32)
[2020-05-06 12:48] VITALS: BP 110/64
== END 2020-05-06 14:30 | disposition home or self-care (01) | DRG 786 ==
LOC: LC 23:52 → LR 05-03 00:51 → 2S 05-04 22:04
PROVIDERS: ADMIT Obstetrics & Gynecology; ATTEND Obstetrics & Gynecology
PROC: 10D00Z1 Extraction of Products of Conception, Low, Open Approach (ICD-10-PCS; principal; 2020-05-03)
DX: O62.1 Secondary uterine inertia (principal); O15.1 Eclampsia complicating labor; O42.92 Full-term premature rupture of membranes, unspecified as to length of time between rupture and onset of labor; O76 Abnormality in fetal heart rate and rhythm complicating labor and delivery; Z3A.40 40 weeks gestation of pregnancy; Z37.0 Single live birth; Z91.018 Allergy to other foods; Z11.59 Encounter for screening for other viral diseases
CPT/HCPCS: 1967; 1968; 36415; 80053; 80307; 81005; 83615; 84112; 84550; 85027; 86592; 86850; 86900; 86901; 87070; 87491; 87591; 88307; 94760; 94799; 99140; 0241U; C9803; J0131; J0690; J1885; J2250; J2405; J2540; J2590; J2704; J2795; J3010; J3475; J3490; J7060